=== PATIENT | male | born 1990 | race Hispanic/Latino ===

== ENCOUNTER 2019-07-19 18:05 | Emergency (ER) | payer SELFPAY ==
[2019-07-19] MEDS ORDERED: PREDNISONE50 MG PO (18:16)
[2019-07-19] MEDS ORDERED: PEPCID20 MG PO (18:16)
[2019-07-19 18:40] VITALS: BP 132/88
== END 2019-07-19 18:49 | disposition home or self-care (01) | DRG 607 ==
LOC: ED 18:05
DX: L50.9 Urticaria, unspecified (principal); L29.9 Pruritus, unspecified; H57.89 Other specified disorders of eye and adnexa

== ENCOUNTER 2019-07-26 22:27 | Emergency (ER) | payer SELFPAY ==
[~2019-07-26] VITALS: Ht 182.9 cm; Wt 114.0 kg
[~2019-07-26 22:27] MED LIST: PEPCID20 MG PO; PREDNISONE50 MG PO
[2019-07-26] MEDS ORDERED: MEDDOSEPAK PO (23:28)
[2019-07-26 23:45] VITALS: BP 135/94
== END 2019-07-26 23:45 | disposition home or self-care (01) | DRG 916 ==
LOC: ED 22:27
DX: T78.40XA Allergy, unspecified, initial encounter (principal); F17.210 Nicotine dependence, cigarettes, uncomplicated; X58.XXXA Exposure to other specified factors, initial encounter